=== PATIENT | female | born 1960 | race Asian ===

== ENCOUNTER → 2023-10-06 | Day surgery (SDC) | payer MEDICAID ==
[~2023-10-06] VITALS: Ht 162.6 cm; Wt 93.9 kg
[~2023-10-06] MED LIST: BUPIVACAINE HCL/PF 0.5% (5MG/ML) 10ML ONE; CHOL200059 PO; DEXAMETHASONE 4MG/ML 1ML VIAL ONE; FAMO40TA7 PO; FENTANYL CITRATE/PF 50MCG/ML 2ML VIAL ONE; GLYCOPYRROLATE 0.2 MG/ML 2ML VIAL ONE; HYDROMORPHONE HCL/PF 2MG/ML CPJ IV PRN; HYDROMORPHONE HCL/PF 2MG/ML CPJ ONE; LABE100T9 PO; LABETALOL 5MG/ML SYR 20 MG/4 ML SYRINGE IV PRN; METF-414 PO; MIDAZOLAM HCL 2 MG/2 ML VIAL ONE; NEOSTIGMINE METHYLSULFATE 1MG/ML 10 ML VIAL ONE; NIFE-32 PO; OLME20TA22 PO; OMEP40CA20 PO; ONDANSETRON HCL 4MG/2ML INJ ONE; PROPOFOL 200MG/20ML VIAL IV ONE; ROCURONIUM BROMIDE 10MG/ML VIAL 5ML IV ONE; SKIN ADHESIVE 0.7 GM EA TOP ONE; SODIUM CHLORIDE 0.9% 1,000 ML IV SCH
[2023-10-06] MEDS: ONDANSETRON HCL 4MG/2ML INJ IV PRN (12:31)
[2023-10-06] MEDS: MEPERIDINE HCL/PF 25MG/ML CPJ IV PRN (13:11)
[2023-10-06 14:14] VITALS: BP 104/70; PULSE 52; RESP 15
[2023-10-06] MEDS: HYDROCODONE/ACETAMINOPHEN 5/325MG TABLET PO PRN (14:14)
== END | disposition home or self-care (01) ==
LOC: OR 07:41
PROVIDERS: ATTEND Surgery
DX: K80.10 Calculus of gallbladder with chronic cholecystitis without obstruction (principal); I10 Essential (primary) hypertension; E78.00 Pure hypercholesterolemia, unspecified; E11.9 Type 2 diabetes mellitus without complications; K21.9 Gastro-esophageal reflux disease without esophagitis; Z79.84 Long term (current) use of oral hypoglycemic drugs; Z79.899 Other long term (current) drug therapy; Z98.890 Other specified postprocedural states
CPT/HCPCS: 47562; 82962; 88304; J3010; J3490 ×3; J1100; J2250; J2405; J2704; J1170; J2175; J7030; J2710